=== PATIENT | male | born 1965 | race Two or more races ===

== ENCOUNTER 2024-08-16 10:00 | Inpatient (IN) | payer OTHER ==
[~2024-08-16] VITALS: Ht 167.6 cm; Wt 104.3 kg
[2024-08-23] MEDS ORDERED: LATANOPROST2.5 ML (15:35)
[2024-08-23] MEDS ORDERED: BUPIVACAINE HCL 30 ML VIAL IJ ONE (19:00)
[2024-08-23] MEDS ORDERED: LIDOCAINE HCL 1%/EPINEPHRINE 20ML VIAL IJ ONE (19:00)
[2024-08-23] MEDS ORDERED: METRONIDAZOLE/SODIUM CHLORIDE 500 MG/100 ML PIGGYBACK IV SCH (19:00)
[2024-08-23] MEDS ORDERED: CEFTRIAXONE SODIUM 2,000 MG VIAL IV SCH (19:00)
[2024-08-23] MEDS ORDERED: ONDANSETRON HCL 2 MG/ML VIAL IV PRN (20:15)
[2024-08-23] MEDS ORDERED: MORPHINE SULFATE 4 MG/ML CARTRIDGE IV PRN (20:15)
[2024-08-23] MEDS ORDERED: OxyCODONE HCL 5 MG TABLET (ROXICODONE) PO PRN (20:15)
[2024-08-23] MEDS ORDERED: DEXTROSE 50 % IN WATER 0.5 G/ML DISP.SYRIN IV PRN (20:15)
[2024-08-23] MEDS ORDERED: RINGERS SOLUTION,LACTATED 1,000 ML IV SCH (20:15)
[2024-08-23] MEDS ORDERED: MORPHINE SULFATE 4 MG/ML VIAL IV ONE ×2 (20:45→21:15)
[2024-08-23] MEDS ORDERED: FAMOTIDINE/PF 20 MG/2 ML VIAL IV PUSH SCH (21:00)
[2024-08-23 22:55] VITALS: BP 129/73; O2SAT 94
[2024-08-23 23:18] LABS: HEMATOCRIT 38.6 % (39.0-48.0); HEMOGLOBIN 12.7 g/dL (13-16.00); MEAN CELL VOLUME 83.6 fL (80.0-100.00); MEAN CORPUSCULAR HEMOGLOBIN 27.5 pg (27.00-32.0); MEAN CORPUSCULAR HGB CONC 32.8 g/dl (32.0-36.0); PLATELET COUNT 347 K/uL (150-450); RED BLOOD COUNT 4.62 M/uL (4.00-6.00)
[2024-08-23 23:37] LABS: ALBUMIN 2.9 gm/dL (3.4-5.0); CALCIUM 8.5 mg/dL (8.5-10.1); CREATININE SERUM 0.63 mg/dL (0.70-1.30); GFR 129.47; MAGNESIUM 1.7 mg/dL (1.8-2.4); PHOSPHOROUS 3.3 mg/dL (2.5-4.9); POTASSIUM 4.09 mEq/L (3.5-5.1)
[2024-08-24] MEDS ORDERED: GABAPENTIN 300 MG CAPSULE PO SCH (01:00)
[2024-08-24] MEDS ORDERED: ACETAMINOPHEN 500 MG GEL..CAP PO SCH (02:00)
[2024-08-24 02:33] VITALS: BP 136/82; O2SAT 97
[2024-08-24 08:16] VITALS: BP 129/83; O2SAT 95
[2024-08-24] MEDS ORDERED: HYOSCYAMINE SULFATE 0.125 MG TAB.SUBL SL SCH (09:00)
[2024-08-24 09:37] LABS: HEMATOCRIT 39.2 % (39.0-48.0); MEAN CELL VOLUME 82.8 fL (80.0-100.00); MEAN CORPUSCULAR HEMOGLOBIN 27.4 pg (27.00-32.0); MEAN CORPUSCULAR HGB CONC 33.1 g/dl (32.0-36.0); PLATELET COUNT 329 K/uL (150-450); RED BLOOD COUNT 4.74 M/uL (4.00-6.00); RED CELL DISTRIBUTION WIDTH 14.1 % (11.5-14.5)
[2024-08-24 10:50] LABS: ALBUMIN 2.8 gm/dL (3.4-5.0); CALCIUM 8.7 mg/dL (8.5-10.1); CREATININE SERUM 0.66 mg/dL (0.70-1.30); GFR 122.7; MAGNESIUM 1.7 mg/dL (1.8-2.4); PHOSPHOROUS 4.5 mg/dL (2.5-4.9); POTASSIUM 4.57 mEq/L (3.5-5.1)
[2024-08-24] MEDS ORDERED: POLYETHYLENE GLYCOL 3350 17 GM BLIST.PACK PO SCH (17:00)
[2024-08-24] MEDS ORDERED: ENOXAPARIN SODIUM 40 MG/0.4 ML SYRINGE SUBCUTANEO SCH (17:00)
[2024-08-25 01:17] VITALS: BP 115/68; O2SAT 92
[2024-08-25 08:00] VITALS: BP 1742/80; O2SAT 96
[2024-08-25] MEDS ORDERED: ENOXAPARIN SODIUM 40 MG/0.4 ML SYRINGE SUBCUTANEO SCH (09:00)
[2024-08-25] MEDS ORDERED: MEPERIDINE HCL/PF 25 MG/ML VIAL IV PRN (16:45)
[2024-08-25 17:17] VITALS: BP 120/58; O2SAT 95
[2024-08-26] VITALS: BP 112/71; O2SAT 95
[2024-08-26 08:00] VITALS: BP 153/90; O2SAT 100
[2024-08-26] MEDS ORDERED: CELECOXIB 200 MG CAPSULE PO NR (12:30)
[2024-08-26 17:12] VITALS: BP 111/75; O2SAT 95
[2024-08-26] MEDS ORDERED: CELECOXIB 200 MG CAPSULE PO SCH (21:00)
[2024-08-27 01:17] VITALS: BP 133/87; O2SAT 98
[2024-08-27] MEDS ORDERED: INTESTINEX680 M1 PO (11:58)
[2024-08-27] MEDS ORDERED: HYOSCYAMINE0.125 M1 SL (11:59)
== END 2024-08-27 14:49 | disposition home or self-care (01) | DRG 330 ==
LOC: O/R 08-23 09:18 → SURH 08-23 10:00
PROVIDERS: ADMIT Surgery; ATTEND Surgery
PROC: 07BB4ZZ Excision of Mesenteric Lymphatic, Percutaneous Endoscopic Approach (ICD-10-PCS; 2024-08-23)
PROC: 0DTG4ZZ Resection of Left Large Intestine, Percutaneous Endoscopic Approach (ICD-10-PCS; principal; 2024-08-23 13:00)
DX: C18.6 Malignant neoplasm of descending colon (principal); K55.1 Chronic vascular disorders of intestine; R59.0 Localized enlarged lymph nodes

== ENCOUNTER 2024-10-21 08:23 | Day surgery (SDC) | payer OTHER ==
[2024-10-17 09:39] VITALS: BP 144/81
[2024-10-17 10:05] LABS: PH,URINE 5.5 (5.0-8.0); URINE APPEARANCE Clear; URINE BILIRRUBIN Negative (NEGATIVE); URINE BLOOD Negative; URINE COLOR Yellow; URINE GLUCOSE Negative (NEGATIVE); URINE KETONE Negative (NEGATIVE); URINE LEUKOCYTE Negative; URINE NITRATE Negative; URINE PROTEIN Trace (NEGATIVE); URINE RBC 4.1 uL (0.0-20.8)
[2024-10-17 10:12] LABS: URINE BACTERIA 2.4 uL (0.0-1933); URINE EPITHELIAL CELLS 0.4 uL (0.0-38.8); URINE WBC 1.2 uL (0.0-23.2)
[~2024-10-21] VITALS: Ht 167.6 cm; Wt 92.1 kg
[~2024-10-21 08:23] MED LIST: HYOSCYAMINE0.125 M1 SL; INTESTINEX680 M1 PO; LATANOPROST2.5 ML
[2024-10-21] MEDS ORDERED: HEPARIN SODIUM,PORCINE 5,000 UNITS/ML VIAL ONE (14:18)
[2024-10-21] MEDS ORDERED: BUPIVACAINE HCL/Mpf 0.5% 10ML VIAL ONE (14:19)
[2024-10-21] MEDS ORDERED: LIDOCAINE HCL 1%/EPINEPHRINE 20ML VIAL IJ ONE (14:19)
[2024-10-21] MEDS ORDERED: TRAM1TAB98 PO (14:19)
[2024-10-21] MEDS ORDERED: CEFAZOLIN SODIUM 1,000 MG VIAL ONE ×2 (14:21→15:22)
== END 2024-10-21 17:40 | disposition home or self-care (01) ==
LOC: CIR.AMB 08:23
PROVIDERS: ATTEND Surgery
DX: C18.6 Malignant neoplasm of descending colon (principal)